=== PATIENT | female | born 1940 | race Caucasian/White ===

== ENCOUNTER 2017-01-04 17:16 | Emergency (ER) | payer MEDICARE ==
[~2017-01-04] VITALS: Ht 162.6 cm; Wt 69.1 kg
[~2017-01-04 17:16] MED LIST: ASPI1TAB69 PO; ATOR20TA15 PO; BIMA0.03 TOPICAL; DILT360C12 PO; DYAZ37.5 PO; LEVO100T5 PO; SERT-129 PO
[2017-01-04 17:37] VITALS: BP 166/86; PULSE 67; RESP 17; TEMP 98; O2SAT 98
[2017-01-04] MEDS ORDERED: LEVO88TA2 PO (17:57)
[2017-01-04] MEDS ORDERED: ASPI81CH CHEW (17:57)
[2017-01-04] MEDS ORDERED: LISI10TA3 PO (17:57)
[2017-01-04] MEDS ORDERED: CART120C PO (17:57)
[2017-01-04] MEDS ORDERED: ACETAMINOPHEN/HYDROcodone 325 MG/10 MG TAB PO ONE (18:00)
--- NOTE | 2017-01-04 18:14 | PD ---
HPI Chief Complaint: Musculoskeletal Complaint Time Seen by Provider: 18:09 Travel History International Travel<30 days: No Contact w/Intl Traveler<30days: No Traveled to known affect area: No History of Present Illness HPI 76-year-old female that presents to the ED for evaluation of right rib pain as well as wrist injury after a fall today. Per patient she missed a step and she landed on her right side. Patient does have a history of mastectomy on the same side. Pain per patient is 7 out of 10 and gets worse with touching with deep breaths. No prior injuries. No head injury. No blood thinner use. No numbness, tingling, weakness. Patient does have a bruise to the right wrist but she's not as concerned and sent the ribs. Per patient the pain on the wrist is 2 out of 10. No shortness of breath. Pain with deep breaths as well as with laughing and movement. Pain does not radiate. No back or neck pain. No pelvic pain. No hip pain. No allergies to medication. PFSH Past Medical History Hx Anticoagulant Therapy: Yes (asa 81mg) Arthritis: Yes Blood Disorders: No Cancer: Yes (BREAST) Genitourinary: No Hypertension: Yes Immune Disorder: No Neurologic: No Psychiatric: No Reproductive: Yes (HX OF OVARIAN TUMOR) Respiratory: No Thyroid Disease: Yes Ulcer: Yes (stomach ulcers) ?: Not Past Surgical History Abdominal Surgery: Yes (hysterectomy 06/29) Gynecologic Surgery: Yes (RIGHT MASTECTOMY-1995) Hysterectomy: Yes (JUNE 26, 2007) Social History Alcohol Use: Yes ("GLASS OF WINE OCCASIONALLY") Tobacco Use: No Substance Use: No Allergies-Medications (Allergen,Severity, Reaction): Coded Allergies: No Known Allergies (Verified , 01/04/17) Reported Meds & Prescriptions Reported Meds & Active Scripts Active Levothyroxine (Levothyroxine Sodium) 100 Mcg Tab 100 Mcg PO DAILY Sertraline (Sertraline HCl) 100 Mg Tab 100 Mg PO DAILY Dyazide (Triamterene-Hydrochlorothiazide) 37.5-25 Mg Cap 1 Cap PO DAILY Reported Aspirin 81 Mg Chew 81 Mg CHEW DAILY Lisinopril 10 Mg Tab 10 Mg PO DAILY Cartia Xt (Diltiazem ER 24 HR) 120 Mg Caper 240 Mg PO DAILY Levothyroxine (Levothyroxine Sodium) 88 Mcg Tab 88 Mcg PO DAILY Review of Systems Except as stated in HPI: all other systems reviewed are Neg Physical Exam Narrative GENERAL: SKIN: Warm and dry. HEAD: Atraumatic. Normocephalic. EYES: Pupils equal and round. No scleral icterus. No injection or drainage. ENT: No nasal bleeding or discharge. Mucous membranes pink and moist. Tongue is midline. No uvula deviation NECK: Trachea midline. No JVD. CARDIOVASCULAR: Regular rate and rhythm. No murmurs, S3, S4. RESPIRATORY: No accessory muscle use. Clear to auscultation. Breath sounds equal bilaterally. GASTROINTESTINAL: Abdomen soft, non-tender, nondistended. Hepatic and splenic margins not palpable. MUSCULOSKELETAL: Extremities without clubbing, cyanosis, or edema. No obvious deformities. Full range of motion of the upper and lower extremities bilaterally. No lumbar, thoracic, cervical spine tenderness to palpation. Patient does have reproducible bruising and swelling noted on the dorsal right wrist. 2+ pulses bilaterally. Full ROM of the wrist. Tender to palpation on the right ribs. Bruising noted. NEUROLOGICAL: Awake and alert. No obvious cranial nerve deficits. Motor grossly within normal limits. Five out of 5 muscle strength in the arms and legs. Normal speech. PSYCHIATRIC: Appropriate mood and affect; insight and judgment normal. Data Data Last Documented VS Vital Signs Date Time Temp Pulse Resp B/P Pulse Ox O2 Delivery O2 Flow Rate FiO2 01/04/17 17:37 98.0 67 17 166/86 98 Orders Wrist, Complete ([id number]) (01/04/17 ) Ribs, Uni (W/Exp Cxr-Min 3vw) (01/04/17 ) Acetamin-Hydrocod 325-10 Mg ([place] 10-32 (01/04/17 18:00) MDM Medical Decision Making Medical Screen Exam Complete: Yes Emergency Medical Condition: Yes Medical Record Reviewed: Yes Interpretation(s) Last Impressions Wrist X-Ray 01/04/17 0000 Signed Impressions: Service Date/Time: Wednesday, January 04, 2017 18:27 - CONCLUSION: Chronic changes and no evidence for acute fracture. Genaro Cota MD Ribs X-Ray 01/04/17 0000 Signed Impressions: Service Date/Time: Wednesday, January 04, 2017 18:31 - CONCLUSION: No definite displaced rib fractures. Genaro Cota MD Differential Diagnosis Fracture versus bruise versus contusion versus pneumothorax versus rib fracture Narrative Course 76-year-old female that presents to the ED for evaluation of right rib pain as well as right wrist pain. Patient was properly examined and was found to have signs and symptoms consistent appears to be muscle scale injuries. X-rays were ordered. Patient was given Lortab for pain. X-ray showed no sign of acute bony injury or pulmonary disease. Patient was reassured. His tenderness appears to be a contusion. Patient was given prescription for diclofenac sodium and Lortab. Told to apply ice or warm compresses. Close follow-up with PCP. See ED for any worsening symptoms. Diagnosis Primary Impression: Contusion of rib on right side Qualified Code: S20.211A - Contusion of rib on right side, initial encounter Additional Impression: Traumatic hematoma of right wrist Qualified Code: S60.211A - Traumatic hematoma of right wrist, initial encounter Patient Instructions: General Instructions Additional Instructions: Take medications as prescribed. Follow-up with PCP. See ED for any worsening symptoms. Do not drink or drive while taking pain medication. Apply ice or heat as needed for pain Med/Other Pt SpecificInfo: Prescription(s) given Scripts Diclofenac Sodium DR 75 Mg Tabdr75 Mg PO BID PRN (PAIN SCALE 1 TO 10) #20 TAB Prov:Herberth Cintron MD 01/04/17 Hydrocodone-Acetaminophen (Lortab)5-325 Mg Tab1 Tab PO Q6H PRN (PAIN) #20 TAB Prov:Herberth Cintron MD 01/04/17 Disposition: 01 DISCHARGE HOME Condition: Stable Jose Antonio Caruso Jan 04, 2017 18:14
--- NOTE | 2017-01-04 18:55 | RADRPT ---
EXAM DATE/TIME: 01/04/2017 18:27 [facility] COMPARISON: No previous studies available for comparison. INDICATIONS : Fell, right wrist pain, swelling MEDICAL HISTORY : Carcinoma, breast. SURGICAL HISTORY : Mastectomy, right. ENCOUNTER: Initial ACUITY: 1 day PAIN SCORE: 1/10 LOCATION: Right wrist FINDINGS: No definite fractures, or dislocations are identified. No definite lytic or sclerotic lesion is seen . 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 CONCLUSION: Chronic changes and no evidence for acute fracture. Genaro Cota MD on January 04, 2017 at 18:53 Board Certified Radiologist. This report was verified electronically.
--- NOTE | 2017-01-04 18:57 | RADRPT ---
EXAM DATE/TIME: 01/04/2017 18:31 [facility] COMPARISON: No previous studies available for comparison. INDICATIONS : Fell today, right side chest wall pain MEDICAL HISTORY : Carcinoma, breast. SURGICAL HISTORY : Mastectomy, right. ENCOUNTER: Initial ACUITY: 1 day PAIN SCORE: 8/10 LOCATION: Right chest FINDINGS: No definite displaced rib fractures or pneumothorax is identified. CONCLUSION: No definite displaced rib fractures. Genaro Cota MD on January 04, 2017 at 18:54 Board Certified Radiologist. This report was verified electronically.
[2017-01-04] MEDS ORDERED: HYDR-3533 PO (19:34)
[2017-01-04] MEDS ORDERED: DICL75TA PO (19:34)
== END 2017-01-04 19:50 | disposition home or self-care (01) ==
LOC: PHEFT 17:16
DX: S20.211A Contusion of right front wall of thorax, initial encounter (principal); S60.211A Contusion of right wrist, initial encounter; I10 Essential (primary) hypertension; E07.9 Disorder of thyroid, unspecified; Z79.82 Long term (current) use of aspirin; Z87.39 Personal history of other diseases of the musculoskeletal system and connective tissue; W10.9XXA Fall (on) (from) unspecified stairs and steps, initial encounter
CPT/HCPCS: 71101; 73110; 99284